=== PATIENT | female | born 1995 | race African-American/Black ===

== ENCOUNTER 2017-08-26 13:08 | Emergency (ER) | payer OTHER ==
[~2017-08-26] VITALS: Ht 149.9 cm; Wt 95.3 kg
[2017-08-26 13:29] LABS: *BLOOD, URINE 3+ (NEGATIVE); *CLARITY,URINE CLEAR (CLEAR); *COLOR,URINE YELLOW (YELLOW); *KETONES,URINE 1+ (NEGATIVE); *PROTEIN,URINE 1+ (NEGATIVE); *UROBILINOGEN,URINE 0.2 E.U./dl (NORMAL); LEUKOCYTE ESTERASE ,URINE 2+ (NEGATIVE); NITRITE, URINE NEGATIVE (NEGATIVE); PH,URINE 5.5 (5.0-8.0); UGLUCOSE NEGATIVE (NEGATIVE)
[2017-08-26 13:32] LABS: *BILIRUBIN,URIN 1+ (NEGATIVE)
[2017-08-26 13:35] LABS: *URINE HCG, QUAL NEGATIVE (NEGATIVE); RBC,URINE 20-50 /HPF (0-3); WBC,URINE 50-80 /HPF (0-3)
[2017-08-26 13:36] LABS: BACTERIA,URINE MODERATE /HPF (NONE SEEN); SQUAMOUS EPITHELIAL CELL,UR FEW /HPF (NONE SEEN)
--- NOTE | 2017-08-26 13:43 | NUR ---
Patient discharged to home in stable conditon. Written and verbal after care instructions given. Patient verbalizes understanding of instructions.
== END 2017-08-26 14:02 | disposition home or self-care (01) ==
LOC: ER 13:08
DX: S13.9XXA Sprain of joints and ligaments of unspecified parts of neck, initial encounter (principal); N39.0 Urinary tract infection, site not specified; V79.49XA Driver of bus injured in collision with other motor vehicles in traffic accident, initial encounter; Y93.89 Activity, other specified; Y92.413 State road as the place of occurrence of the external cause; Y99.9 Unspecified external cause status
CPT/HCPCS: 84703; A4663